=== PATIENT | female | born 1975 | race Caucasian/White ===

== ENCOUNTER → 2024-10-19 | Day surgery (SDC) | payer MEDICAID ==
[~2024-10-19] VITALS: Ht 160 cm; Wt 102.1 kg
[~2024-10-19] MED LIST: BALANCED SALT IRRIG SOLN 15ML ONE; DROS4TAB PO; DULO30CA2 PO; FENTANYL CITRATE/PF 50MCG/ML 2ML VIAL ONE; HYDROMORPHONE HCL/PF 1MG/ML INJ IV PRN; LABETALOL 5MG/ML 4ML INJ IV PRN; LACTATED RINGERS 1,000 ML IV SCH; LEVO100T9 PO; LOSA100T33 PO; MEPERIDINE HCL/PF 25MG/ML CPJ IV PRN; MIDAZOLAM HCL 2 MG/2 ML VIAL ONE; ONDANSETRON HCL 4MG/2ML INJ IV PRN
[2024-10-19 07:35] LABS: UCG KIT EXPIRATION DATE 11/27/2026; UCG KIT LOT# 946166; UCG SCREEN NEGATIVE
== END | disposition home or self-care (01) ==
LOC: OR 06:57
PROVIDERS: ATTEND Ophthalmology
DX: H11.001 Unspecified pterygium of right eye (principal); I10 Essential (primary) hypertension; E03.9 Hypothyroidism, unspecified; E66.9 Obesity, unspecified; F41.9 Anxiety disorder, unspecified; Z79.899 Other long term (current) drug therapy; Z98.890 Other specified postprocedural states
CPT/HCPCS: 65426; 81025; J3010; J2003; J2250